=== PATIENT | female | born 1960 | race Caucasian/White ===

== ENCOUNTER 2018-03-16 03:47 | Inpatient (IN) | END 2018-03-29 15:45 | disposition home health service (06) | DRG 438 ==

== ENCOUNTER 2018-04-08 19:37 | Inpatient (IN) | END 2018-04-11 14:08 | disposition home or self-care (01) | DRG 439 ==

== ENCOUNTER 2018-04-18 18:12 | Emergency (ER) | END 2018-04-19 00:24 | disposition home or self-care (01) ==